=== PATIENT | female | born 1990 | race Caucasian/White ===

== ENCOUNTER 2017-06-03 12:11 | Day surgery (SDC) | payer MEDICARE, MEDICAID ==
[2017-06-03 12:48] VITALS: BMI 28.9
--- NOTE | 2017-06-03 14:32 | PDOC.EVN ---
Event Note - Event Note Event Note: S: Sent from clinic w painful ctx and nonreactive NST. MINH in clinic 7.4cm. O: VSWNL FHT reactive [place] irritability SVE 1cm, unchanged A/P: Pt feels better after IVF, DC home.
== END 2017-06-03 14:24 | disposition home or self-care (01) ==
LOC: L&D/OP 12:11
PROVIDERS: ATTEND Obstetrics & Gynecology
DX: O47.9 False labor, unspecified (principal); Z3A.00 Weeks of gestation of pregnancy not specified; Z88.5 Allergy status to narcotic agent; Z79.899 Other long term (current) drug therapy; Z87.891 Personal history of nicotine dependence
CPT/HCPCS: 96360; 96361

== ENCOUNTER 2017-06-16 05:30 | Inpatient (IN) | payer MEDICARE, MEDICAID ==
--- NOTE | 2017-06-15 21:02 | PDOC.LDHP ---
Labor and Delivery H&P Chief complaint: scheduled induction HPI: Pt is a 27yo @ 39 weeks here for elective IOL. Current gestational age (weeks): 39 Due date: 06/20/17 Dating criteria: second trimester ultrasound Grav: 3 Para: 2 ( x2, 2nd child CHD, ) Current complications: none Abnormal US findings: No Current medications: pre- vitamins Previous surgical history: none Allergies/Adverse Reactions: Allergies Allergy/AdvReac Type Severity Reaction Status Date / Time codeine Allergy Nausea Verified 06/16/17 06:25 Social history: drug use (MJ+ followed by neg) - Physical Exam Vital signs reviewed and normal: yes General: resting Heart: RRR Lungs: nonlabored breathing Abdomen: gravid Extremeties: trace edema FHT: category 1 - Vaginal Exam cm dilated: 2 Effacement: 25% Station: -2 - OB Labs Blood type: A RH: positive Antibody Screen: negative HIV: negative RPR: negative HEPSAg: negative 1 hour GCT: negative GBS: negative Urine drug screen: positive (pos MJ followed by neg) Rubella: immune Additional Labs: NIPT and AFP low risk - Assessment L&D Assessment: elective induction at term - Plan Plan: admit to L&D, cervical ripening, labor augmentation if indicated, informed consent obtained, anesthesia consult for pain management -: A/P: 27yo @ 39 weeks here for elective IOL. Plan for cervical ripening and IOL w pitocin. AROM on admit exam w clear fluid. FHT reassuring.
[2017-06-16] MEDS ORDERED: Ibuprofen 800 MG TAB PO PRN (06:17)
[2017-06-16] MEDS ORDERED: Promethazine HCl 25 MG/ML VIAL IM PRN ×2 (06:17→09:37)
[2017-06-16] MEDS ORDERED: LR 500 ML/Oxytocin 10 units 500 ML IV SCH ×2 (06:17)
[2017-06-16] MEDS ORDERED: Ondansetron HCl/PF 4 MG/2 ML Vial IVP PRN ×3 (06:17→15:02)
[2017-06-16] MEDS ORDERED: Lidocaine 1% (PF) 30 ML VIAL SC PRN (06:17)
[2017-06-16 06:40] VITALS: BMI 29.7
[2017-06-16] MEDS ORDERED: FLU VACC QS2017-18 36 mo. & older 0.5 ML SYRINGE IM ONE (06:45)
[2017-06-16] MEDS: Lactated Ringer's 1,000 ML IV SCH ×2 (06:50→11:15)
[2017-06-16 07:37] LABS: Hematocrit 35.3 % (36.0-47.0); Red Blood Cell (RBC) Count 3.79 mill/uL (4.20-5.40)
[2017-06-16] MEDS ORDERED: Fentanyl 4 mcg/Marc 0.1% Cadd 100 ML ONE (08:39)
[2017-06-16] MEDS ORDERED: Eucerin (Mineral Oil/Petrolatum,White) 30 gm Jar TOP PRN (09:37)
[2017-06-16] MEDS ORDERED: ePHEDrine/0.9% NaCl/PF SYRINGE 50 mg/10 ml SLOW IVP PRN (09:37)
[2017-06-16] MEDS ORDERED: Naloxone HCl 0.4 mg/ml Vial IVP PRN ×2 (09:37)
[2017-06-16] MEDS ORDERED: Acetaminophen 325 MG TAB PO PRN (09:37)
[2017-06-16] MEDS ORDERED: Lactated Ringer's 500 ML IV PRN (09:37)
[2017-06-16] MEDS ORDERED: diphenhydrAMINE 50 MG/ML VIAL IVP PRN (09:37)
[2017-06-16] MEDS ORDERED: Fentanyl 4mcg/Marcaine 0.1% Cassette 100 ML EPIDURAL SCH (09:45)
[2017-06-16] MEDS ORDERED: Communication Order-Pharmacy FS SCH (09:45)
--- NOTE | 2017-06-16 11:31 | PDOC.LDPN ---
Labor & Delivery Progress Note - Subjective Subjective: comfortable - Objective Vital signs reviewed and normal: yes General: resting Dilation: 3 Effacement: 50% Station: -2 FHT: category 1 Martin'S Additions contractions every: 3 AROM: clear fluid - Assessment (1) 39 weeks gestation of Code(s): Z3A.39 - 39 WEEKS GESTATION OF Current Visit: Yes Status : Acute Plan: continue plan of care, pitocin for augmentation
[2017-06-16] MEDS: LR / Pitocin 40 units/1000 ml 1,000 ML IV PRN ×2 (12:06→13:27)
--- NOTE | 2017-06-16 12:40 | PDOC.OPDEL ---
OB Operative/Delivery Note Delivery Dr/Surgeon: Jurgen Pre-Delivery Diagnosis: elective induction Procedure/Post Delivery Dx: spontaneous vaginal delivery Weeks gestation: 39 - Findings A Sex: female - 1 min: 8 - 5 min: 9 - Additional Findings/Plan Placenta delivered: manual removal (manual removal after cord avulsion) Repaired Obstetrical Laceration: none Estimated blood loss: 200ml Post delivery plan: routine recovery (nursery notified about recommendation for echo)
[2017-06-16] MEDS ORDERED: Milk Of Magnesia 30 ML UDCUP PO PRN (15:02)
[2017-06-16] MEDS ORDERED: Benzocaine/Menthol 20-0.5% 60 ML CAN TOP PRN (15:02)
[2017-06-16] MEDS ORDERED: LR / Pitocin 40 units/1000 ml 1,000 ML IV SCH (15:02)
[2017-06-16] MEDS ORDERED: Preparation H Ointment 28 GM TUBE PR PRN (15:02)
[2017-06-16] MEDS ORDERED: Bisacodyl 10 MG SUPP PR PRN (15:02)
[2017-06-16] MEDS ORDERED: diphenhydrAMINE 25 MG CAP PO PRN (15:02)
[2017-06-16] MEDS ORDERED: Lanolin Ointment 7 GM TUBE TOP PRN (15:02)
[2017-06-16] MEDS: Ferrous Sulfate 325 MG TAB PO SCH (16:40)
[2017-06-16] MEDS ORDERED: Adacel (T-DAP) 0.5 ML VIAL IM ONE (21:00)
[2017-06-16] MEDS ORDERED: Ibuprofen 800 MG TAB PO SCH (22:00)
[2017-06-16] MEDS: Ibuprofen 800 MG TAB PO SCH (23:42)
[2017-06-16] MEDS: Docusate (Surfak) 240 MG CAP PO SCH (23:42)
[2017-06-17] MEDS: Ibuprofen 800 MG TAB PO SCH ×2 (07:42→15:57)
[2017-06-17] MEDS: Ferrous Sulfate 325 MG TAB PO SCH ×2 (07:46→18:50)
[2017-06-17] MEDS: Docusate (Surfak) 240 MG CAP PO SCH ×2 (09:20→22:03)
--- NOTE | 2017-06-17 09:55 | PDOC.PP ---
Post Progress Note Post Day #: 1 Subjective: doing well, breast feeding, cramping w nursing, requesting additional pain medication PO intake tolerated: yes Flatus: yes Ambulation: yes Vital Signs (12 hours) Temp Pulse Resp BP 06/17/17 08:51 98.1 F 75 20 124/68 06/17/17 07:53 97.6 F 84 16 06/17/17 04:00 97.6 F 84 16 119/70 06/16/17 23:52 98 F 77 16 114/73 Weight Weight 196 lb - Physical Examination General: NAD Respiratory: non-labored breathing Abdominal: lochia (normal), no distention Fundus firm & at: below umb Extremities: negative homans (B) Skin: no rash Neurological: no gross focal deficits Psychiatric: A&Ox3, normal affect Result Diagrams: 06/16/17 06:50 Additional Labs: Post Labs Blood Type A POSITIVE 06/16/17 06:50 Hep Bs Antigen Non-Reactive S/CO (NonReactive) 06/16/17 06:50 (1) 39 weeks gestation of Code(s): Z3A.39 - 39 WEEKS GESTATION OF Status: Acute (2) Vaginal delivery Code(s): O80 - ENCOUNTER FOR FULL-TERM UNCOMPLICATED DELIVERY Status: Acute - Assessment/Plan PPD 1, doing well, will order one time dose of Ultram if needed for pain not relieved w Motrin. Plan for DC tomorrow.
[2017-06-17] MEDS ORDERED: traMADol HCl 50 MG TAB PO SCH (10:00)
[2017-06-18] MEDS: Ibuprofen 800 MG TAB PO SCH ×2 (00:13→09:16)
[2017-06-18 08:32] VITALS: BP 124/65; TEMP 97.6
[2017-06-18] MEDS: Ferrous Sulfate 325 MG TAB PO SCH (09:16)
[2017-06-18] MEDS: Docusate (Surfak) 240 MG CAP PO SCH (09:16)
--- NOTE | 2017-06-18 09:53 | PDOC.PP ---
Post Progress Note Post Day #: 2 Subjective: doing well, reported lochia WNL, no concerns PO intake tolerated: yes Flatus: yes Ambulation: yes Vital Signs (12 hours) Temp Pulse Resp BP 06/18/17 08:31 97.6 F 71 20 124/65 06/18/17 08:00 97.6 F 71 20 Weight Weight 196 lb - Physical Examination General: NAD Respiratory: non-labored breathing Abdominal: no distention, appropriately TTP Fundus firm & at: below umb Extremities: negative homans (B) Skin: no rash Psychiatric: A&Ox3, normal affect Result Diagrams: 06/16/17 06:50 Additional Labs: Post Labs Blood Type A POSITIVE 06/16/17 06:50 Hep Bs Antigen Non-Reactive S/CO (NonReactive) 06/16/17 06:50 (1) 39 weeks gestation of Code(s): Z3A.39 - 39 WEEKS GESTATION OF Status: Acute (2) Vaginal delivery Code(s): O80 - ENCOUNTER FOR FULL-TERM UNCOMPLICATED DELIVERY Status: Acute - Assessment/Plan PPD2 plan for DC today, no concerns.
== END 2017-06-18 14:20 | disposition home or self-care (01) | DRG 775 ==
LOC: L&D 06:00 → 3SW 15:13
PROVIDERS: ADMIT Obstetrics & Gynecology; ATTEND Obstetrics & Gynecology
PROC: 3E0P7VZ Introduction of Hormone into Female Reproductive, Via Natural or Artificial Opening (ICD-10-PCS; principal; 2017-06-16)
PROC: 10E0XZZ Delivery of Products of Conception, External Approach (ICD-10-PCS; 2017-06-16)
PROC: 3E0P3VZ Introduction of Hormone into Female Reproductive, Percutaneous Approach (ICD-10-PCS; 2017-06-16)
PROC: 10907ZC Drainage of Amniotic Fluid, Therapeutic from Products of Conception, Via Natural or Artificial Opening (ICD-10-PCS; 2017-06-16)
DX: O99.324 Drug use complicating childbirth (principal); F12.10 Cannabis abuse, uncomplicated; Z3A.39 39 weeks gestation of pregnancy; Z37.0 Single live birth
CPT/HCPCS: 76815; 85027; 86780; 86850; 86900; 86901; 87340; J2001; J2405; J7120